=== PATIENT | male | born 1995 | race Caucasian/White ===

== ENCOUNTER → 2018-01-26 11:17 | Outpatient (CLI) | payer OTHER, SELFPAY ==
[2018-01-28 03:06] LABS: HCV Quant. RNA PCR HCV Not Detected IU/mL (.)
== END ==
PROVIDERS: Family Provider Family Medicine; PCP Family Medicine; Visit Provider Internal Medicine Gastroenterology
DX: B18.2 Chronic viral hepatitis C (principal)
CPT/HCPCS: 36415; 87522